=== PATIENT | female | born 1990 | race Two or more races ===

== ENCOUNTER 2021-04-20 11:28 | Outpatient (CLI) | payer OTHER | END 2021-04-20 12:59 | disposition home or self-care (01) | LOC: PRENATAL 11:28 | PROVIDERS: ATTEND Obstetrics & Gynecology Maternal & Fetal Medicine | DX: O35.0XX1 Maternal care for (suspected) central nervous system malformation in fetus, fetus 1 (principal); O35.3XX1 Maternal care for (suspected) damage to fetus from viral disease in mother, fetus 1; O98.512 Other viral diseases complicating pregnancy, second trimester; Z36.89 Encounter for other specified antenatal screening; Z3A.24 24 weeks gestation of pregnancy ==

== ENCOUNTER 2021-08-11 14:43 | Inpatient (IN) | payer OTHER ==
[~2021-08-11] VITALS: Ht 157.5 cm; Wt 3.2 kg
[2021-08-11] MEDS ORDERED: PRENATAL CAPLE1 EAC1 PO (16:55)
[2021-08-14] MEDS ORDERED: IBU800 MG PO (10:05)
[2021-08-14] MEDS ORDERED: CEPHALEXIN500 MG PO (10:07)
[2021-08-14] MEDS ORDERED: SIMETHICONE125 M1 PO (10:08)
[2021-08-14] MEDS ORDERED: SURFAK240 M1 PO (10:08)
== END 2021-08-14 11:06 | disposition home or self-care (01) | DRG 788 ==
LOC: OB/GYN 14:43 → LDR 14:43 → OB/GYN 20:55 → SEC-K 22:57 → OB/GYN 22:58
PROVIDERS: ADMIT Obstetrics & Gynecology; ATTEND Obstetrics & Gynecology
PROC: 0DNW0ZZ Release Peritoneum, Open Approach (ICD-10-PCS; 2021-08-11)
PROC: 4A1HXCZ Monitoring of Products of Conception, Cardiac Rate, External Approach (ICD-10-PCS; 2021-08-11)
PROC: 10D00Z1 Extraction of Products of Conception, Low, Open Approach (ICD-10-PCS; principal; 2021-08-11 17:00)
DX: O34.211 Maternal care for low transverse scar from previous cesarean delivery (principal); O99.820 Streptococcus B carrier state complicating pregnancy; O99.891 Other specified diseases and conditions complicating pregnancy; N73.6 Female pelvic peritoneal adhesions (postinfective); Z3A.39 39 weeks gestation of pregnancy; Z37.0 Single live birth; Z20.822 Contact with and (suspected) exposure to COVID-19